=== PATIENT | male | born 1945 | race Hispanic/Latino ===

== ENCOUNTER 2019-04-03 09:49 | Outpatient (CLI) | payer OTHER ==
[2019-04-03 10:33] LABS: Blood Urea Nitrogen 11 mg/dL (9-20)
--- NOTE | 2019-04-03 11:33 | Cat Scan Report ---
CT CHEST WITH CONTRAST HISTORY: COPD and pneumothorax COMPARISON: None TECHNIQUE: Routine chest CT exam performed following intravenous contrast administration. Consent was obtained prior to the administration of contrast. Note: All CT scans at this location are performed using CT dose reduction employed for ALARA by means of automated exposure control. CONTRAST: 100 mL Omnipaque 300. FINDINGS: CHEST CT: Heart and Pericardium: Normal. Vasculature: Normal. Lymphatics: No lymphadenopathy. Lungs: Moderate emphysema with the greatest involvement in the right lower lobe where there is a shane pheral and of relative lucency with absence of lung markings and vessels. A prominent 5 cm left dario ediastinal bulla. No lung nodule or mass. No airspace disease or pleural effusion. Trachea and Bronchi: No significant abnormality. Osseous Structures: Normal Additional Findings: The upper abdomen is unremarkable. The adrenal glands are normal. IMPRESSION: 1. Emphysema with greatest involvement in the periphery of the right lower lobe. This would explain a suspicion for pneumothorax in the right lung base. 2. No pneumothorax. 3. No acute change. Signer Name: Vargas Saeed MD Signed: 04/03/2019 11:28 AM Workstation Name: [id number]
== END 2019-04-03 09:50 | disposition home or self-care (01) ==
LOC: CT 09:49
PROVIDERS: ATTEND Internal Medicine
DX: J43.9 Emphysema, unspecified (principal)
CPT/HCPCS: 36415; 71260; 82565; 84520; Q9967

== ENCOUNTER 2022-02-26 14:38 | Outpatient (CLI) | payer OTHER ==
--- NOTE | 2022-02-26 15:45 | Cat Scan Report ---
CT CHEST WITHOUT CONTRAST INDICATION / CLINICAL INFORMATION: LUNG CANCER SCREENING. TECHNIQUE: Axial CT images were obtained through the chest without contrast. [facility] CT [facility] are performed using CT dose reduction for ALARA by means of automated exposure control. COMPARISON: CT 04/03/2019 FINDINGS: HEART: No significant abnormality. CORONARY ARTERY CALCIFICATION: Present -- Severe. THORACIC AORTA: No significant abnormality. MEDIASTINUM / JOEY: No significant abnormality. PLEURA: No pleural effusion. No pneumothorax. LUNGS: Advanced emphysematous changes are noted. There is a 4 mm nodule in the right lower lobe poste rolaterally on axial series 2 image 72. This is new since the prior. There is a new 3 mm nodule in th e posterior right lung apex on axial image 23. ADDITIONAL FINDINGS: None. UPPER ABDOMEN: No acute abnormality. Minimal cholelithiasis. SKELETAL SYSTEM: No significant abnormality. IMPRESSION: 1. Advanced COPD changes. 2. There are 2 new solid nodules within the right lung, the larger of which measures 4 mm in the righ t lower lobe posterior laterally. This is LUNG-RADS category 3. Six-month follow-up is recommended. Signer Name: Janes Dobbins MD Signed: 02/26/2022 3:40 PM Workstation Name: [id number]
== END 2022-02-26 14:39 | disposition home or self-care (01) ==
LOC: CT 14:38
DX: J44.9 Chronic obstructive pulmonary disease, unspecified (principal); R91.1 Solitary pulmonary nodule; I25.10 Atherosclerotic heart disease of native coronary artery without angina pectoris; Z87.891 Personal history of nicotine dependence
CPT/HCPCS: 71250